=== PATIENT | male | born 1995 | race Caucasian/White ===

== ENCOUNTER 2021-07-29 08:58 | Outpatient (CLI) | payer OTHER ==
--- NOTE | 2021-07-29 10:05 | XRAY Report ---
PROCEDURE: Foot 3 View LT INDICATIONS: PAIN SWELLING L 1ST TOE 1ST METATARSAL TECHNIQUE: 3 views of the foot were acquired. COMPARISON: None FINDINGS: Bones: No fractures or dislocations. No suspicious bony lesions. Soft tissues: No tibiotalar joint effusion. Achilles tendon appears normal. IMPRESSION: No evidence acute bony abnormality of the left foot. If clinical suspicion and/or symptoms persist, further assessment with repeat plain films or advanced imaging (e.g., CT, MRI, or bone scan) may be helpful for further assessment. Reviewed by: Angel Angela MD on 07/29/2021 10:04 AM PDT Approved by: Angel Angela MD on 07/29/2021 10:04 AM PDT Station ID: [id number]
== END 2021-07-29 08:59 | disposition home or self-care (01) ==
LOC: DI 08:58
PROVIDERS: ATTEND Physician Assistant Medical
DX: M79.675 Pain in left toe(s) (principal); R22.42 Localized swelling, mass and lump, left lower limb